=== PATIENT | female | born 1935 | race Caucasian/White ===

== ENCOUNTER → 2016-06-13 07:27 | Outpatient (CLI) | payer MEDICARE, OTHER ==
[2015-05-02 10:23] VITALS: BMI 28.2
[~2016-06-13 07:27] MED LIST: ASPIRIN EC81 M1 PO; COLACE100 MG PO; CORDARONE200 MG PO; COZAAR50 MG PO; FISH OIL 1,0001 CA1 PO; FISH OIL PO; FLAXSEED OIL1000 MG PO; HYDROCHLOROTHIA25 MG PO; K-DUR20 MEQ PO; LASIX40 MG PO; LOPRESSOR25 MG PO; SENOKOT-S TABLE1 TAB PO; ULTRAM50 MG PO; VITAMIN D3 PO; VITAMIN D5000 UNIT PO; XARELTO15 MG PO; [UNRECOGNIZED DRUG - REMARK] PO
== END | disposition home or self-care (01) ==
LOC: D.RT 07:27
DX: C34.90 Malignant neoplasm of unspecified part of unspecified bronchus or lung (principal)

== ENCOUNTER 2016-08-26 07:14 | Day surgery (SDC) | payer MEDICARE, OTHER ==
[~2016-08-26] VITALS: Ht 152.4 cm; Wt 59.1 kg
[2016-08-26 07:53] VITALS: BP 145/67; Ht 152.4 cm; Wt 59.1 kg
[2016-08-26 09:02] LABS: BASOPHILS 0.2 % (0-2); EOSINOPHILS 5.3 % (0-7); HEMOGLOBIN 11.8 g/dL (12-16); IMMATURE GRANULOCYTES 0.2 % (0-5); LYMPHOCYTES 22.2 % (15-50); MCH 29.2 pg (26.0-34.0); MCHC 32.8 g/dL (31.0-37.0); MCV 89.1 fL (80.0-100.0); MEAN PLATELET VOLUME 10.5 fL (7.4-10.4); MONOCYTES 7.3 % (2-11); NEUTROPHILS 64.8 % (40-80); PLATELET COUNT 177 10x3/uL (130-400); RBC 4.04 10x6/uL (4.00-5.40); RDW 12.9 % (11.5-14.5); WBC 5.9 10x3/uL (4.8-10.8)
[2016-08-26 09:07] LABS: ANION GAP 10.9 mmol/L (8-16); CALCIUM 9.1 mg/dL (8.5-10.1); CARBON DIOXIDE 27.7 mmol/L (21.0-32.0); POTASSIUM - SERUM 3.6 mmol/L (3.5-5.1)
--- NOTE | 2016-08-26 13:47 | NUR ---
1010 SERVED FULL LIQUID DIET. Floyd RUBI R.N. 1135 DRESSED, AWAKE & ALERT. GVIEN DISCHARGE INFORMATION INCLUDING: MED REC, SHEET LISTING NSAIDS TO AVIOD, REFLUX ESOPHAGITIS INFORMATION SHEETS, REFLUX ESOPHAGITIS/HIATEL HERNIA DIET SHEET & DISCHARGE INSTRUCTIONS SHEET POST ENDOSCOPIC PROCEDURES, & RTC APPT. PT VOICED UNDERSTANDING. TO CAFETERIA VIA WHEELCHAIR ACCOMPANIED BY . Floyd RUBI R.N.
--- NOTE | 2016-08-27 09:43 | HP ---
PATIENT: CLYDE CORTES MEDICAL RECORD: [id number] ACCOUNT: [id number] LOCATION:[place] : 37 ADMISSION DATE: 08/26/16 HISTORY AND PHYSICAL EXAMINATION CHIEF COMPLAINT: Reflux. HISTORY OF PRESENT ILLNESS: The patient has gastroesophageal reflux. She has a large hiatal hernia. The gastroesophageal reflux is intractable. The patient is to undergo an EGD in order to determine whether she can safely undergo a hiatal hernia repair. ALLERGIES: ATORVASTATIN. HOME MEDICATIONS: Xarelto, fish oil, Cozaar, aspirin, Colace, Senokot as well as flaxseed. PAST MEDICAL AND SURGICAL HISTORY: Possible asthma, coronary artery disease, history of CABG, history of aortic valve replacement, history of CVA, history of weakness from CVA, hiatal hernia, arthritis, , tonsillectomy and adenoidectomy, also removal of a lung nodule. PHYSICAL EXAMINATION: GENERAL: The patient does not appear acutely ill. She does not appear chronically ill. VITAL SIGNS: Reviewed. HEAD: External ears appear normal. EYES: Extraocular movements are intact. NECK: Trachea is midline. CHEST: No intercostal retractions. PULMONARY: Nonlabored. IMPRESSION: 1. Gastroesophageal reflux. 2. Hiatal hernia. PLAN: Will be EGD. TRANSINT:[id number] Voice Confirmation ID: [id number] DOCUMENT ID: [id number] NAVIN CARRASCO MD at 0943 CC: MIMI ROMERO MD, FERNANDEZ TILLMAN MD and DOLORES JONES MD [id number] DICTATION DATE: 08/26/16 09 MED SURG NURSE: 08/26/[address] [facility] 08/26/16 [address] [place] [address]
--- NOTE | 2016-08-27 09:43 | OP ---
PATIENT NAME: CLYDE CORTES MEDICAL RECORD: [id number] :37 LOCATION:D.OPS ADMISSION DATE: SURGEON: RUPERTO CARRASCO MD DATE OF OPERATION: 08/26/2016 PREOPERATIVE DIAGNOSES: 1. Gastroesophageal reflux, intractable. 2. Hiatal hernia. POSTOPERATIVE DIAGNOSES: 1. Gastroesophageal reflux, intractable. 2. Hiatal hernia. 3. Largely intrathoracic stomach (large hiatal hernia). PROCEDURE: Esophagogastroduodenoscopy with antral biopsies. SURGEON: Ruperto Carrasco MD. NOVELTY BALLOON ASSEMBLER AND PACKER: None. BLOOD LOSS: Minimal. ANESTHESIA: IV sedation. COMPLICATIONS: None. The reason for the anesthesia staff being present during the procedure includes the possible need for airway manipulation, which was necessary during the procedure. ENDOSCOPIC COURSE: The patient was conveyed to the endoscopy suite electively on 08/26/2016. IV sedation was induced by the anesthesia staff. A bite block was inserted. A gastroscope was inserted into the mouth. It was advanced easily into the hypopharynx. The esophagus was easily intubated as were the stomach and duodenum. Upon withdrawal, retroflexed and angulus views were obtained. Antral biopsies were obtained. The endoscope was then withdrawn under direct vision. I will see the patient in my office in 2-3 weeks. A hiatal hernia repair in her case is going to be very difficult. She will need to decide whether she wants to undergo such a large hiatal hernia repair. TRANSINT:[id number] Voice Confirmation ID: [id number] DOCUMENT ID: [id number] RUPERTO CARRASCO MD at 0943 CC: MIMI ROMERO MD [id number] DICTATION DATE: 08/26/16942 MILL TENDER: 08/26/16 1711 [facility] 08/26/16 [address] [place] [address]
== END 2016-08-26 11:35 | disposition home or self-care (01) ==
LOC: D.OPS 07:14
PROVIDERS: Anesthesiology
DX: K44.9 Diaphragmatic hernia without obstruction or gangrene (principal); K21.9 Gastro-esophageal reflux disease without esophagitis; J45.909 Unspecified asthma, uncomplicated; I25.10 Atherosclerotic heart disease of native coronary artery without angina pectoris; Z95.1 Presence of aortocoronary bypass graft; Z01.812 Encounter for preprocedural laboratory examination

== ENCOUNTER → 2016-11-26 11:17 | Outpatient (CLI) | payer MEDICARE, OTHER ==
[2016-08-26 07:53] VITALS: BMI 25.4
== END | disposition home or self-care (01) ==
LOC: D.RAD 11:15
DX: C34.32 Malignant neoplasm of lower lobe, left bronchus or lung (principal)

== ENCOUNTER 2018-10-02 18:46 | Emergency (ER) | payer MEDICARE, OTHER ==
[~2018-10-02] VITALS: Ht 152.4 cm; Wt 59.1 kg
[2018-10-02 18:51] VITALS: Ht 152.4 cm; Wt 59.1 kg
[2018-10-02] MEDS ORDERED: HYDROCODON-ACE1 EAC7 PO (21:58)
[2018-10-02 22:17] VITALS: BP 176/93
== END 2018-10-02 22:17 | disposition home or self-care (01) ==
LOC: D.ER 18:46
DX: S62.112A Displaced fracture of triquetrum [cuneiform] bone, left wrist, initial encounter for closed fracture (principal); X58.XXXA Exposure to other specified factors, initial encounter; Y93.89 Activity, other specified; Y92.89 Other specified places as the place of occurrence of the external cause

== ENCOUNTER 2018-11-11 16:47 | Inpatient (IN) | payer MEDICARE, OTHER ==
[~2018-11-11] VITALS: Ht 152.4 cm; Wt 96.4 kg
[~2018-11-11 16:47] MED LIST changes: +HYDROCODON-ACE1 EAC7 PO
[2018-11-11] MEDS ORDERED: LASIX40 MG PO (17:17)
[2018-11-11] MEDS ORDERED: K-DUR20 MEQ PO (17:19)
[2018-11-11 17:44] LABS: BASOPHILS 0.2 % (0-2); EOSINOPHILS 0.9 % (0-7); HEMOGLOBIN 14.4 g/dL (12-16); IMMATURE GRANULOCYTES 0.2 % (0-5); LYMPHOCYTES 15.1 % (15-50); MCHC 33.5 g/dL (31.0-37.0); MCV 86.7 fL (80.0-100.0); MEAN PLATELET VOLUME 10.2 fL (7.4-10.4); MONOCYTES 5.7 % (2-11); NEUTROPHILS 77.9 % (40-80); RBC 4.96 10x6/uL (4.00-5.40); RDW 13.2 % (11.5-14.5); WBC 9.6 10x3/uL (4.8-10.8)
[2018-11-11 17:46] LABS: PLATELET COUNT 269 10x3/uL (130-400)
[2018-11-11 18:09] LABS: ALBUMIN 2.7 g/dL (3.4-5.0); ALKALINE PHOSPHATASE 88 U/L (46-116); ALT (SGPT) 18 U/L (10-68); CALC OSMOLALITY 286 mosm/kg (275-300); CARBON DIOXIDE 28.5 mmol/L (21.0-32.0); CHLORIDE - SERUM 104 mmol/L (98-107); CREATININE - SERUM 0.9 mg/dL (0.6-1.3); POTASSIUM - SERUM 4.3 mmol/L (3.5-5.1); PROTEIN - SERUM 7.1 g/dL (6.4-8.2); SODIUM 138 mmol/L (136-145); UREA NITROGEN 35 mg/dL (7-18); eGFR NON AFRICAN AMERICAN 63 mL/min (90-120)
[2018-11-11 18:13] LABS: GLUCOSE 148 mg/dL (74-106)
[2018-11-11 18:23] LABS: CREATINE KINASE 32 UL (21-215); PRO BNP 185 pg/mL (0-450)
[2018-11-11 18:25] LABS: TROPONIN-I < 0.017 ng/mL (0.000-0.060)
[2018-11-11 18:31] VITALS: BP 105/54
[2018-11-11 19:30] VITALS: BP 132/48
--- NOTE | 2018-11-11 19:39 | NUR ---
URINE SENT TO LAB
[2018-11-11 19:51] LABS: APPEARANCE CLEAR (CLEAR); BILIRUBIN NEGATIVE (NEGATIVE); COLOR STRAW (YELLOW); GLUCOSE NEGATIVE (NEGATIVE); KETONE NEGATIVE (NEGATIVE); NITRITE NEGATIVE (NEGATIVE); PROTEIN NEGATIVE (NEGATIVE); SPECIFIC GRAVITY 1.005 (1.005-1.020); UROBILINOGEN NORMAL (NORMAL)
[2018-11-11 20:23] VITALS: BP 122/55
--- NOTE | 2018-11-11 20:41 | NUR ---
PT ASSISTED WITH USING BEDPAN.
--- NOTE | 2018-11-11 21:30 | NUR ---
PT GIVEN ICE WATER.
--- NOTE | 2018-11-11 21:45 | NUR ---
RECEIVED PT VIA STRETCHER. A&O X3. PRESENT AT BEDSIDE. RR EVEN AND UNLABORED AT THIS TIME. NO S/S OF DISTRESS NOTED. NO C/O PAIN OR DISCOMFORT. UP TO RR X1 ASSIST. GAIT SLOW AND STEADY. WILL CPOC.
[2018-11-11 22:55] VITALS: BP 133/67
--- NOTE | 2018-11-12 01:49 | NUR ---
PT WENT TO CT PER ORDER AND HAS RETURNED TO ROOM. SOB ON EXERTION. NO FURTHER NEEDS EXPRESSED AT THIS TIME.
[2018-11-12 04:00] VITALS: BP 128/60
[2018-11-12 06:26] LABS: BASOPHILS 0 % (0-2); EOSINOPHILS 0 % (0-7); HEMOGLOBIN 13.2 g/dL (12-16); IMMATURE GRANULOCYTES 0.4 % (0-5); LYMPHOCYTES 14.3 % (15-50); MCH 28.7 pg (26.0-34.0); MCHC 33.8 g/dL (31.0-37.0); MCV 84.8 fL (80.0-100.0); MEAN PLATELET VOLUME 10.1 fL (7.4-10.4); MONOCYTES 0.9 % (2-11); NEUTROPHILS 84.4 % (40-80); PLATELET COUNT 234 10x3/uL (130-400); RDW 13.2 % (11.5-14.5)
[2018-11-12 06:46] LABS: ALBUMIN 2.4 g/dL (3.4-5.0); ANION GAP 12.3 mmol/L (8-16); BILIRUBIN - TOTAL 0.19 mg/dL (0.2-1.3); CALCIUM 8.6 mg/dL (8.5-10.1); CARBON DIOXIDE 26.9 mmol/L (21.0-32.0); CREATININE - SERUM 0.9 mg/dL (0.6-1.3); MAGNESIUM - SERUM 2.1 mg/dL (1.8-2.4); PHOSPHOROUS 4.9 mg/dL (2.5-4.9); POTASSIUM - SERUM 4.2 mmol/L (3.5-5.1); PROTEIN - SERUM 6.6 g/dL (6.4-8.2); WBC 4.5 10x3/uL (4.8-10.8)
--- NOTE | 2018-11-12 07:10 | NUR ---
REPORT RECEIVED FROM VIOLIN RESTORER AND PATIENT CARE ASSUMED. PATIENT LAYING IN BED ON BACK WITH EYES CLOSED AND BREATHING EVENLY. WILL CONTINUE WITH PLAN OF CARE. SR UP X 2 BED IN LOW POSITIOJN AND CALL LIGHT IN REACH.
[2018-11-12 09:38] VITALS: BP 122/59
--- NOTE | 2018-11-12 10:11 | NUR ---
PATIENT IS STABLE AND VSS. AT BS. PATIENT DENIES ANY NEEDS OR PAIN. OFFERED BATH BUT PATIENT DECLINED. DID GIVE PATIENT ALL NEEDED HYGIENE ITEMS. TELEMETRY APPLIED. SR HR 80. WILL CONTINUE WITH PLAN OF CARE. SR UP X 2 BED IN LOW POSITION AND CALL LIGHT IN REACH.
[2018-11-12 11:57] VITALS: Ht 152.4 cm; Wt 96.4 kg
--- NOTE | 2018-11-12 14:52 | NUR ---
PATIENT RESTING COMFORTABLY IN BED WITH EYES CLOSED AND RESPIRATIONS NON LABORED AND EVEN. AT BS. WILL CONTINUE TO MONITOR. SR UP X 2 BED IN LOW POSITION AND CALL LIGHT IN REACH.
--- NOTE | 2018-11-12 19:20 | NUR ---
RECEIVED REPORT, WILL ASSUME CARE OF PT, DENIES ANY NEEDS AT THIS TIME, BED IS LOW, SRX2, CALL LIGHT IN REACH, WILL CONTINUE PLAN OF CARE
[2018-11-12 20:00] VITALS: BP 101/53
--- NOTE | 2018-11-12 20:02 | MORECARE ---
CASE MANAGEMENT DISCHARGE SUMMARY PATIENT: CLYDE CORTES UNIT: [id number] ADM DATE: 11/11/18 AGE: 83 : 36 SEX: F ROOM/BED: D.1209 AUTHOR: MEÑO MONTGOMERY PHYSICIAN: REFERRING PHYSICIAN: ELIF GARVIN MD DATE OF SERVICE: 11/12/18 Discharge Plan Patient Name: CLYDE CORTES [facility] [facility] 1935 Planned Disposition: Home Anticipated Discharge Date: Discharge Date: Expected LOS: Initial Reviewer: [email or web address] Initial Review Date: 11/12/2018 Generated: 11/12/18 9:02 pm Patient Name: CLYDE CORTES Page [phone] at 2001 All edits/amendments must be made on the electronic document DICTATION DATE: 11/12/182001 SUPERVISOR KENNEL: ANA 11/12/182001 RPT#: [id number] DC DATE: STATUS: ADM IN [facility] [address] [place] [address] END OF REPORT
--- NOTE | 2018-11-12 20:09 | MORECARE ---
CASE MANAGEMENT DISCHARGE SUMMARY PATIENT: CLYDE JOHNSON UNIT: [id number] ADM DATE: 11/11/18 AGE: 83 : 36 SEX: F ROOM/BED: D.1209 AUTHOR: ULISES,DOC PHYSICIAN: REFERRING PHYSICIAN: ELIF GARVIN MD DATE OF SERVICE: 11/12/18 Discharge Plan Patient Name: CLYDE JOHNSON [facility]: [facility]:[place] : 1935 Planned Disposition: Home Anticipated Discharge Date: Discharge Date: Expected LOS: Initial Reviewer: [email or web address] Initial Review Date: 11/12/2018 Generated: 11/12/18 9:08 pm Comments DCP- Discharge Planning Updated by [email or web address]: Migdalia Massey on 11/12/18 7:[address] Patient Name: CLYDE JOHNSON Admission Status: ER Accout number: [id number] Admission Date: 11-11-2018 : 1935 Admission Diagnosis:DYSPNEA, UNSPECIFIED Attending: ELIF CARR Current LOS: 1 Anticipated DC Date: Planned Disposition: Home Primary Insurance: MEDICARE A & B Discharge Planning Comments: CM met with patient at bedside after explaining CM role and obtaining verbal consent. Patient lives at home with her and plans to return there upon discharge. Patient feels this would be a safe discharge. CM discussed availability / needs of home health and medical equipment. Patient denies any discharge needs at this time. Patient states she will have her drive her home upon discharge. CM will continue to follow and assist as needed with discharge planning / needs. Technology Integration Specialist: Migdalia Massey DCPIA - Discharge Planning Initial Assessment Updated by [email or web address]: Migdalia Massey on 11/12/18 8:03 pm * Is the patient Alert and Oriented? Yes * How many steps to enter\exit or inside your home? * PCP [facility] * Pharmacy [facility] [place] * Preadmission Environment Home with Family * ADLs Independent * Equipment None * List name and contact numbers for known caregivers / representatives who currently or will assist patient after discharge: Wale Johnson - [facility] [place] - [phone] * Verbal permission to speak to the caregivers and representatives has been obtained from the patient. N/A * Community resources currently utilized None * Additional services required to return to the preadmission environment? No * Can the patient safely return to the preadmission environment? Yes * Has this patient been hospitalized within the prior 30 days at any hospital? No Last DP export: 11/12/18 7:02 p Patient Name: CLYDE JOHNSON Page [phone] at 2009 All edits/amendments must be made on the electronic document DICTATION DATE: 11/12/182007 VEGETABLE SCULLION: ANA 11/12/182007 RPT#: [id number] DC DATE: STATUS: ADM IN [facility] [address] [place] [address] END OF REPORT
--- NOTE | 2018-11-12 20:11 | NUR ---
COMPLAINS OF HEAD ACHE, GAVE TYLENOL ORDER
--- NOTE | 2018-11-12 21:14 | NUR ---
PT ASKING FOR SOMETHING TO HELP HER SLEEP, CALL DR. GARVIN, SAID SHE WOULD RATHER NOT AT THIS TIME,
[2018-11-12 23:46] VITALS: BP 127/74
--- NOTE | 2018-11-13 00:09 | NUR ---
ASSISTED PT TO RESTROOM AND BACK TO BED, SCD ARE ON, DAX ALARM IS ON, CALL LIGHT IN REACH, WILL CONTINUE PLAN OF CARE
--- NOTE | 2018-11-13 03:03 | NUR ---
I have reviewed this patient and I concur with the Shift Assessment completed by the Licensed Practical Nurse today this shift.
[2018-11-13 04:21] VITALS: BP 108/61
[2018-11-13 06:59] LABS: ALBUMIN 2.3 g/dL (3.4-5.0); ANION GAP 8.7 mmol/L (8-16); BILIRUBIN - TOTAL 0.25 mg/dL (0.2-1.3); CALCIUM 8.7 mg/dL (8.5-10.1); POTASSIUM - SERUM 3.7 mmol/L (3.5-5.1); PROTEIN - SERUM 6.2 g/dL (6.4-8.2)
[2018-11-13 07:00] VITALS: BP 112/78
[2018-11-13 07:06] LABS: PHOSPHOROUS 3.2 mg/dL (2.5-4.9)
--- NOTE | 2018-11-13 07:10 | NUR ---
REPORT RECEIVED FROM QUALITY CONTROL MICROBIOLOGY SUPERVISOR AND PATIENT CARE ASSUMED. PATIENT IS LAYING IN BED ON BACK. PATIENT IS PLEASANT, ALERT AND COME CONFUSION. PATIENT DENIES ANY NEEDS OR PAIN. BROUGHT PATIENT CUP OF COFFEE. VSS AND PATIENT IS STABLE. WILL CONTINUE WITH PLAN OF CARE. SR UP NX 2 BED IN LOW POSITION AND CALL LIGHT IN REACH.
--- NOTE | 2018-11-13 10:00 | NUR ---
PATIENT AMBULATING IN HALLWAY WITH SPOUSE AT SIDE. PATIENT TOLERATING WELL.
[2018-11-13 11:00] VITALS: BP 114/80
--- NOTE | 2018-11-13 13:36 | NUR ---
PATIENT SITTING UP IN BED LOOKING AT CELL PHONE. PATIENT HAVING INCREASED WHEEZING. CALLED RESPIRATORY FOR NEBULIZER TREATMENT. PATIENT DENIES ANY OTHER NEEDS OR PAIN. SR UP X 2 BED IN LOW POSTION AND CALL LIGHT IN REACH.
[2018-11-13 16:00] VITALS: BP 109/52
--- NOTE | 2018-11-13 17:00 | NUR ---
DR TILLEY IN ROOM. NEW ORDERS RECEIVED. PATIENT IS STABLE AND VSS. WILL CONTINUE TO MONITOR. SR UP X 2 BED IN LOW POSITION AND CALL LIGHT IN REACH.
--- NOTE | 2018-11-13 19:15 | NUR ---
PT IS ALERT AND ORIENTED X 3 WITH DISORIENTATION TO TIME. PT RESPONDS APPROPRIATELY TO MOST QUESTIONS BUT IS SLOW TO RESPOND AT TIMES. AT BEDSIDE. PT PRESENTS WITH EXPIRATORY WHEEZES BILATERALLY. HAS LEFT AC THAT IS PATENT AND INFUSING ABX AT THIS TIME. WEARING TELE MONITOR. SEE CHART. SCD'S ON. FALL PRECAUTIONS IN PLACE. CALL LIGHT IN REACH. PT PROVIDED RETURN DEMONSTRATION ON HOW TO USE THE CALL LIGHT EFFECTIVELY. DENIES FURTHER NEEDS AT THIS TIME. BED LOCKED AND LOWERED WITH TWO SIDE RAILS UP. CPOC.
[2018-11-13 20:00] VITALS: BP 106/54
--- NOTE | 2018-11-14 01:28 | NUR ---
I have reviewed this patient and I concur with the Shift Assessment completed by the Licensed Practical Nurse today this shift.
[2018-11-14 04:00] VITALS: BP 118/54
[2018-11-14 06:52] LABS: ALBUMIN 2.5 g/dL (3.4-5.0); ANION GAP 13.2 mmol/L (8-16); BILIRUBIN - TOTAL 0.19 mg/dL (0.2-1.3); CALCIUM 8.6 mg/dL (8.5-10.1); CARBON DIOXIDE 24.8 mmol/L (21.0-32.0); CREATININE - SERUM 1.1 mg/dL (0.6-1.3); MAGNESIUM - SERUM 1.9 mg/dL (1.8-2.4); PHOSPHOROUS 3.4 mg/dL (2.5-4.9); PROTEIN - SERUM 6.4 g/dL (6.4-8.2)
--- NOTE | 2018-11-14 07:10 | NUR ---
REPORT RECEIVED FROM TRIAL COURT JUSTICE AND PATIENT CARE ASSUMED. PATIENT AWAKE, ALERT AND DISORIENTED TO TIME. PATIENT APPEARS IN NO ACUTE DISTRESS. VSS. PATIENT DENIES ANY NEEDS OR PAIN. WILL CONTINUE WITH PLAN OF CARE. SR UP X 2 BED IN LOW POSITION AND CALL LIGHT IN REACH.
--- NOTE | 2018-11-14 13:00 | NUR ---
DR TILLEY IN ROOM. NEW ORDERS RECEIVED.
--- NOTE | 2018-11-14 15:13 | NUR ---
PATIENT RESTING COMFORTABLY WITH AT BS. VSS. WILL CONTINUE TO MONITOR. SR UP X 2 BED IN LOW POSITION AND CALL LIGHT IN REACH.
[2018-11-14 15:29] VITALS: BP 102/78
--- NOTE | 2018-11-14 17:40 | NUR ---
CALLED TO PATIENT ROOM. PATIENT SITTING UP IN BED ROCKING BACK AND FORTH AND RUBBING HER LEGS. PATIENT IS TEARFUL. PATIENT STATES THAT DR FIGUEREDO TOLD HER SHE COULD GO HOME TONIGHT AND THAT SINCE SHE IS NOT GETTING ANY PAIN MED OR NO ONE IS CHECKING ON HER THAT SHE NIGHT WELL GO HOME. I INFORMED PATIENT THAT I HAD NOT SEEN AN ORDER FROM DR FIGUEREDO FOR DC BUT I WOULD CHECK HIS NOT. I ALSO INFORMED THAT I WAS SORRY THAT SHE FELT THAT WAY AND THAT WHEN I CHECKED ON HER 2 HOURS EARLIER , AFTER SHE HAD AMBULATED IN THE HALLWAY, THAT SHE WAS LAYING IN BED AND TALKING ON THE PHONE. HER WAS AT AND I DID NOT KNOW SHE WAS IN PAIN BECAUSE SHE HAD NOT TOLD ME. IN OR JANE FOR ME TO KNOW SHE IS IN PAIN, SHE HAS TO INFORM ME. I PROMPTLY MEDICATED PER JUN WITH HYDROCODONE 10/325 MG PO. I HAD HER SIT UP IN BS CHAIR AND CHANGED IN [place]. I CHECKED DR FIGUEREDO NOTES AND INFORMED HER THAT HE DID NOT WROTE ANYTHING ABOUT DC TONIGHT. I ASKED IF THERE WAS ANYTHING MORE THAT I COULD DO FOR HER AT THIS TIME AND SHE STATED NO. CALL LIGHT IN PATIENTS LAP .
--- NOTE | 2018-11-14 18:00 | NUR ---
ENTERED PATIENT ROOM. PATIENT STATES THAT SHE FEELS MUCH BETTER AND APOLOGIZED FOR HER EARLIER BEHAVIOR. I EXPLAINED THAT I CERTAINLY UNDERSTAND THAT SHE WAS IN PAIN AND THAT HER HAD TO LEAVE FOR WORK. I EMPATHIZED AND WE VISITED FOR MORE THAN 20 MINUTES LOOKING AT HER CHILDREN PICTURES ON HER PHONE, ETC. SHE THANKED THIS NURSE FOR HER CARE AND UNDERSTANDING. PATIENT WISHES TO REMAIN IN BS CHAIR. CALL LIGHT IN PATIENT LAP. WILL CONTINUE TO MONITOR.
[2018-11-14 19:43] VITALS: BP 111/76
--- NOTE | 2018-11-14 19:47 | NUR ---
PATIENT RECEIVED SITTING UP IN BED. ASSESSMENT & VITAL SIGNS DONE. NO C/O PAIN OR DISTRESS. BED LOW. CALL LIGHT WITHIN REACH. WILL CONTINUE TO MONITOR.
[2018-11-14 23:56] VITALS: BP 104/50
--- NOTE | 2018-11-15 00:34 | NUR ---
PATIENT EYES CLOSED. RESPIRATIONS 18 & EVEN. AT BEDSIDE. SCDS ON. CALL LIGHT WITHIN REACH. WILL CONTINUE TO MONITOR.
[2018-11-15 04:20] VITALS: BP 110/60
[2018-11-15 07:30] LABS: ALBUMIN 2.6 g/dL (3.4-5.0); ANION GAP 12.7 mmol/L (8-16); BILIRUBIN - TOTAL 0.2 mg/dL (0.2-1.3); CARBON DIOXIDE 26.3 mmol/L (21.0-32.0); CREATININE - SERUM 0.9 mg/dL (0.6-1.3); MAGNESIUM - SERUM 2.2 mg/dL (1.8-2.4); PHOSPHOROUS 3.4 mg/dL (2.5-4.9); PROTEIN - SERUM 6.3 g/dL (6.4-8.2)
[2018-11-15 07:52] VITALS: BP 120/62
--- NOTE | 2018-11-15 08:22 | NUR ---
PT RESTING IN BED, SPOUSE AT BEDSIDE. SHIFT ASSESSMENT PERFORMED. DENIES ANY NEEDS AT THIS TIME. WILL CONT TO FOLLOW POC
[2018-11-15 11:49] VITALS: BP 109/55
--- NOTE | 2018-11-15 14:03 | NUR ---
PT STATES SHE DOES NOT WEAR O2 AT HOME. PT O2 SAT ON RA IS 95% NURSE PREFORMED WALK TEST WITH PT ON RA AND HER O2 SAT DROPPED TO 84% UPON EXERTION. NURSE APPLIED 2L NC AND WALKED WITH PT. PT KEPT O2 AT 94% UPON EXERTION WITH THE 2L NC.
--- NOTE | 2018-11-15 14:23 | NUR ---
Nutrition Follow-up: Pt reports no change in appetite and states she ate ~50% this AM. Refuses oral supplements. Diet: Low Sodium/No Added Salt PO intake: 46% over last 10 meals BM: 11/14 Labs noted: Alb 2.6, Glu 162 Meds noted: Solumedrol, KDur, Lasix Rec continue current diet as tolerated. [place] food preferences within diet order. RD following.
--- NOTE | 2018-11-15 15:18 | MORECARE ---
CASE MANAGEMENT DISCHARGE SUMMARY PATIENT: CLYDE JOHNSON UNIT: [id number] ADM DATE: 11/11/18 AGE: 83 : 36 SEX: F ROOM/BED: D.1209 AUTHOR: ULISES,DOC PHYSICIAN: REFERRING PHYSICIAN: ELIF GARVIN MD DATE OF SERVICE: 11/15/18 Discharge Plan Patient Name: CLYDE JOHNSON [facility]:[place] : 1935 Planned Disposition: Home Anticipated Discharge Date: Discharge Date: Expected LOS: Initial Reviewer: [email or web address] Initial Review Date: 11/12/2018 Generated: 11/15/18 4:18 pm Comments DCP- Discharge Planning Updated by [email or web address]: Migdalia Massey on 11/12/18 7:[address] Patient Name: CLYDE JOHNSON Admission Status: ER Accout number: [id number] Admission Date: 11-11-2018 : 1935 Admission Diagnosis:DYSPNEA, UNSPECIFIED Attending: ELIF CARR Current LOS: 1 Anticipated DC Date: Planned Disposition: Home Primary Insurance: MEDICARE A & B Discharge Planning Comments: CM met with patient at bedside after explaining CM role and obtaining verbal consent. Patient lives at home with her and plans to return there upon discharge. Patient feels this would be a safe discharge. CM discussed availability / needs of home health and medical equipment. Patient denies any discharge needs at this time. Patient states she will have her drive her home upon discharge. CM will continue to follow and assist as needed with discharge planning / needs. Documentation Designer: Migdalia Massey DCPIA - Discharge Planning Initial Assessment Updated by [id number]: Migdalia Massey on 11/12/18 8:03 pm * Is the patient Alert and Oriented? Yes * How many steps to enter\exit or inside your home? * PCP [facility] * Pharmacy [facility] [place] * Preadmission Environment Home with Family * ADLs Independent * Equipment None * List name and contact numbers for known caregivers / representatives who currently or will assist patient after discharge: Wale Johnson - [facility] [place] - [phone] * Verbal permission to speak to the caregivers and representatives has been obtained from the patient. N/A * Community resources currently utilized None * Additional services required to return to the preadmission environment? No * Can the patient safely return to the preadmission environment? Yes * Has this patient been hospitalized within the prior 30 days at any hospital? No External Providers External Provider: [facility] Next Contact Date: Service Request Date: Service Type: Resolution: Reviewer: Comments: Last DP export: 11/12/18 7:09 p Patient Name: CLYDE JOHNSON Page [phone] at 1518 All edits/amendments must be made on the electronic document DICTATION DATE: 11/15/181517 CHARGE WEIGHER: ANA 11/15/181517 RPT#: [id number] DC DATE: STATUS: ADM IN [facility] [address] [place] [address] END OF REPORT
--- NOTE | 2018-11-15 18:01 | NUR ---
GAVE VERBAL APPROVAL TO D/C PT. PIV REMOVED WITH CATHETER TIP INTACT. TELEMETRY REMOVED AND GIVEN TO SOUBRETTE,
[2018-11-15] MEDS ORDERED: FLORAJEN3 CAPS460 MG PO (18:22)
[2018-11-15] MEDS ORDERED: IPRAT-ALBUT 0.5-3 ML UPD (18:24)
[2018-11-15] MEDS ORDERED: LEVAQUIN750 MG PO (18:24)
[2018-11-15] MEDS ORDERED: PREDNISONE10 MG PO (18:25)
--- NOTE | 2018-11-15 19:15 | NUR ---
DISCHARGE INSTRUCTIONS REVIEWED WITH PT AND ALL QUESTIONS ANSWERED. ASSISTED PT TO FRONT OF HOSPITAL VIA WHEELCHAIR WHERE SHE LEFT WITH SPOUSE
--- NOTE | 2018-11-16 13:10 | MORECARE ---
CASE MANAGEMENT DISCHARGE SUMMARY PATIENT: CLYDE JOHNSON UNIT: [id number] ADM DATE: 11/11/18 AGE: 83 : 36 SEX: F ROOM/BED: D.1209 AUTHOR: ULISES,DOC PHYSICIAN: REFERRING PHYSICIAN: ELIF GARVIN MD DATE OF SERVICE: 11/16/18 Discharge Plan Patient Name: CLYDE JOHNSON Facility: [facility]:[place] : 1935 Planned Disposition: Home Anticipated Discharge Date: Discharge Date: 11/15/2018 Expected LOS: Initial Reviewer: [email or web address] Initial Review Date: 11/12/2018 Generated: 11/16/18 2:10 pm Comments DCP- Discharge Planning Updated by [email or web address]: Migdalia Massey on 11/16/18 12:[address] Late Entry 11/15/18 Patient Name: CLYDE JOHNSON Encounter No: [id number] : 1935 Primary Insurance: MEDICARE A & B Anticipated DC Date: Planned Disposition: Home External Planned Provider: : D/C IMM signed @[facility] FRANDY signed for DME -[employer] for home 02 / portable 02 and nebulizer with duo-neb updrafts DCP follow-up note: Patient and family in agreement with discharge plan. No changes to plan. Case management will follow and assist as needed. Migdalia Massey DCP- Discharge Planning Updated by [id number]: Migdalia Bryson on 11/12/18 7:[address] Patient Name: CLYDE JOHNSON Admission Status: ER Accout number: [id number] Admission Date: 11-11-2018 : 1935 Admission Diagnosis:DYSPNEA, UNSPECIFIED Attending: ELIF CARR Current LOS: 1 Anticipated DC Date: Planned Disposition: Home Primary Insurance: MEDICARE A & B Discharge Planning Comments: CM met with patient at bedside after explaining CM role and obtaining verbal consent. Patient lives at home with her and plans to return there upon discharge. Patient feels this would be a safe discharge. CM discussed availability / needs of home health and medical equipment. Patient denies any discharge needs at this time. Patient states she will have her drive her home upon discharge. CM will continue to follow and assist as needed with discharge planning / needs. Manager Php: Migdalia Massey DCPIA - Discharge Planning Initial Assessment Updated by [email or web address]: Migdalia Massey on 11/12/18 8:03 pm * Is the patient Alert and Oriented? Yes * How many steps to enter\exit or inside your home? * PCP [facility] * Pharmacy [facility] [place] * Preadmission Environment Home with Family * ADLs Independent * Equipment None * List name and contact numbers for known caregivers / representatives who currently or will assist patient after discharge: Wale Johnson - [facility] - [phone] * Verbal permission to speak to the caregivers and representatives has been obtained from the patient. N/A * Community resources currently utilized None * Additional services required to return to the preadmission environment? No * Can the patient safely return to the preadmission environment? Yes * Has this patient been hospitalized within the prior 30 days at any hospital? No Coverage Notice Reviewer: [email or web address] Reema Massey Notice Issued Date-Time: 11/15/2018 14:15 Notice Type: IM Discharge Notice Notice Delivered To: Patient Relationship to Patient: Self Burnisher And Bumper Name: Delivery Method: HAND - Hand Delivered Debra Days: Prior Verbal Notification: Recipient Understood Notice: Yes Recipient Signature: Yes Med Rec Note Co-signed by Attending: Coverage Notice Comment: Reviewer: [email or web address] Reema Massey Notice Issued Date-Time: 11/15/2018 14:15 Notice Type: Patient Choice Letter Notice Delivered To: Patient Relationship to Patient: Self Burnisher And Bumper Name: Delivery Method: HAND - Hand Delivered Debra Days: Prior Verbal Notification: Recipient Understood Notice: Yes Recipient Signature: Yes Med Rec Note Co-signed by Attending: Coverage Notice Comment: FRANDY FOR DME Last DP export: 11/15/18 2:18 p Patient Name: CLYDE JOHNSON Page [id number] at 1310 All edits/amendments must be made on the electronic document DICTATION DATE: 11/16/18 1310 BENEFITS SALES CONSULTANT: ANA 11/16/18 1310 RPT#: [id number] DC DATE:11/15/18 STATUS: DIS IN [facility] [address] [place] [address] END OF REPORT
--- NOTE | 2018-11-18 07:33 | MORECARE ---
CASE MANAGEMENT DISCHARGE SUMMARY PATIENT: CLYDE JOHNSON UNIT: [id number] ADM DATE: 11/11/18 AGE: 83 : 37 SEX: F ROOM/BED: D.1209 AUTHOR: ULISES,DOC PHYSICIAN: REFERRING PHYSICIAN: ELIF GARVIN MD DATE OF SERVICE: 11/18/18 Discharge Plan Patient Name: CLYDE JOHNSON Facility: [facility]:[place] : 1935 Planned Disposition: Home Anticipated Discharge Date: Discharge Date: 11/15/2018 Expected LOS: Initial Reviewer: [email or web address] Initial Review Date: 11/12/2018 Generated: 11/18/18 8:32 am Comments DCP- Discharge Planning Updated by [email or web address]: Migdalia Massey on 11/16/18 12:[address] Late Entry 11/15/18 Patient Name: CLYDE JOHNSON Encounter No: [id number] : 1935 Primary Insurance: MEDICARE A & B Anticipated DC Date: Planned Disposition: Home External Planned Provider: : D/C IMM signed @[facility] FRANDY signed for DME -[employer] for home 02 / portable 02 and nebulizer with duo-neb updrafts DCP follow-up note: Patient and family in agreement with discharge plan. No changes to plan. Case management will follow and assist as needed. Migdalia Massey DCP- Discharge Planning Updated by [email or web address]: Migdalia Massey on 11/12/18 7:[address] Patient Name: CLYDE JOHNSON Admission Status: ER Accout number: [id number] Admission Date: 11-11-2018 : 1935 Admission Diagnosis:DYSPNEA, UNSPECIFIED Attending: ELIF CARR Current LOS: 1 Anticipated DC Date: Planned Disposition: Home Primary Insurance: MEDICARE A & B Discharge Planning Comments: CM met with patient at bedside after explaining CM role and obtaining verbal consent. Patient lives at home with her and plans to return there upon discharge. Patient feels this would be a safe discharge. CM discussed availability / needs of home health and medical equipment. Patient denies any discharge needs at this time. Patient states she will have her drive her home upon discharge. CM will continue to follow and assist as needed with discharge planning / needs. Nutritional Chemist: Migdalia Massey DCPIA - Discharge Planning Initial Assessment Updated by [email or web address]: Migdalia Massey on 11/12/18 8:03 pm * Is the patient Alert and Oriented? Yes * How many steps to enter\exit or inside your home? * PCP [facility] * Pharmacy [facility] * Preadmission Environment Home with Family * ADLs Independent * Equipment None * List name and contact numbers for known caregivers / representatives who currently or will assist patient after discharge: Wale Johnson - [facility] - [phone] * Verbal permission to speak to the caregivers and representatives has been obtained from the patient. N/A * Community resources currently utilized None * Additional services required to return to the preadmission environment? No * Can the patient safely return to the preadmission environment? Yes * Has this patient been hospitalized within the prior 30 days at any hospital? No Coverage Notice Reviewer: [email or web address] Reema Massey Notice Issued Date-Time: 11/15/2018 14:15 Notice Type: IM Discharge Notice Notice Delivered To: Patient Relationship to Patient: Self Open Claims Representative Name: Delivery Method: HAND - Hand Delivered Debra Days: Prior Verbal Notification: Recipient Understood Notice: Yes Recipient Signature: Yes Med Rec Note Co-signed by Attending: Coverage Notice Comment: Reviewer: [email or web address] Reema Massey Notice Issued Date-Time: 11/15/2018 14:15 Notice Type: Patient Choice Letter Notice Delivered To: Patient Relationship to Patient: Self Open Claims Representative Name: Delivery Method: HAND - Hand Delivered Debra Days: Prior Verbal Notification: Recipient Understood Notice: Yes Recipient Signature: Yes Med Rec Note Co-signed by Attending: Coverage Notice Comment: FRANDY FOR DME Last DP export: 11/16/18 12:10 p Patient Name: CLYDE JOHNSON Page [id number] at 0733 All edits/amendments must be made on the electronic document DICTATION DATE: 11/18/18731 CAB DRIVER: ANA 11/18/18731 RPT#: [id number] DC DATE:11/15/18 STATUS: DIS [id number] [place] [address] END OF REPORT
== END 2018-11-15 19:00 | disposition home or self-care (01) | DRG 190 ==
LOC: D.ER 16:47 → D.M3 21:26
PROVIDERS: Family Medicine; ADMIT Family Medicine; ATTEND Family Medicine
DX: J44.1 Chronic obstructive pulmonary disease with (acute) exacerbation (principal); J18.1 Lobar pneumonia, unspecified organism; C34.90 Malignant neoplasm of unspecified part of unspecified bronchus or lung; N17.9 Acute kidney failure, unspecified; I50.30 Unspecified diastolic (congestive) heart failure; J98.11 Atelectasis; K21.9 Gastro-esophageal reflux disease without esophagitis; K44.9 Diaphragmatic hernia without obstruction or gangrene; R91.8 Other nonspecific abnormal finding of lung field; Z86.73 Personal history of transient ischemic attack (TIA), and cerebral infarction without residual deficits; I11.0 Hypertensive heart disease with heart failure; J44.0 Chronic obstructive pulmonary disease with (acute) lower respiratory infection

== ENCOUNTER 2020-01-17 01:44 | Emergency (ER) | payer MEDICARE, OTHER ==
[~2020-01-17] VITALS: Ht 152.4 cm; Wt 54.5 kg
[~2020-01-17 01:44] MED LIST changes: +FLORAJEN3 CAPS460 MG PO; +IPRAT-ALBUT 0.5-3 ML UPD; +LEVAQUIN750 MG PO; +PREDNISONE10 MG PO
[2020-01-17 01:50] VITALS: Ht 152.4 cm; Wt 54.5 kg
[2020-01-17 02:01] LABS: BASOPHILS 0.1 % (0-2); EOSINOPHILS 4.3 % (0-7); HEMOGLOBIN 13.8 g/dL (12-16); IMMATURE GRANULOCYTES 0.3 % (0-5); LYMPHOCYTES 29.9 % (15-50); MCH 29.2 pg (26.0-34.0); MCHC 32.9 g/dL (31.0-37.0); MCV 88.8 fL (80.0-100.0); MEAN PLATELET VOLUME 10.6 fL (7.4-10.4); MONOCYTES 7.2 % (2-11); NEUTROPHILS 58.2 % (40-80); PLATELET COUNT 215 10x3/uL (130-400); RBC 4.73 10x6/uL (4.00-5.40); RDW 13.4 % (11.5-14.5); WBC 7.8 10x3/uL (4.8-10.8)
[2020-01-17 02:08] LABS: CALC OSMOLALITY 286 mosm/kg (275-300); CALCIUM 9.4 mg/dL (8.5-10.1); CARBON DIOXIDE 23.3 mmol/L (21.0-32.0); CHLORIDE - SERUM 105 mmol/L (98-107); SODIUM 138 mmol/L (136-145); UREA NITROGEN 44 mg/dL (7-18); eGFR NON AFRICAN AMERICAN 56 mL/min (90-120)
[2020-01-17 02:09] LABS: GLUCOSE 105 mg/dL (74-106)
[2020-01-17 02:10] LABS: APTT 24.9 SECONDS (22.8-39.4); INR 0.94 (0.85-1.17); PROTIME 12.6 SECONDS (11.6-15.0)
[2020-01-17 02:25] LABS: ALBUMIN 3.9 g/dL (3.4-5.0); ALKALINE PHOSPHATASE 89 U/L (30-120); ALT (SGPT) 15 U/L (10-68); BILIRUBIN - TOTAL 0.38 mg/dL (0.2-1.3); CKMB 2.2 U/L (0.0-3.6); CREATINE KINASE 79 UL (21-215); MAGNESIUM - SERUM 1.8 mg/dL (1.8-2.4); PROTEIN - SERUM 7.4 g/dL (6.4-8.2)
[2020-01-17 02:26] LABS: TROPONIN-I < 0.017 ng/mL (0.000-0.060)
[2020-01-17] MEDS ORDERED: NITROSTAT0.3 MG SL (02:51)
[2020-01-17 03:12] VITALS: BP 179/76
== END 2020-01-17 03:12 | disposition home or self-care (01) ==
LOC: D.ER 01:44
PROVIDERS: Family Medicine
DX: R07.9 Chest pain, unspecified (principal); I25.10 Atherosclerotic heart disease of native coronary artery without angina pectoris; K44.9 Diaphragmatic hernia without obstruction or gangrene; Z86.73 Personal history of transient ischemic attack (TIA), and cerebral infarction without residual deficits; I50.9 Heart failure, unspecified; Z95.1 Presence of aortocoronary bypass graft

== ENCOUNTER 2020-06-26 10:34 | Day surgery (SDC) | payer MEDICARE, OTHER ==
[~2020-06-26] VITALS: Ht 152.4 cm; Wt 56.7 kg
[~2020-06-26 10:34] MED LIST changes: +ALEVE220 MG PO; +DONEPEZIL HCL10 MG PO; +ERGOCALCIF50000 UNIT PO; +MACROBID100 MG PO; +NITROSTAT0.3 MG SL; +PAROXETINE HCL10 MG PO; +RITALIN10 MG; +ZOCOR20 MG PO
[2020-06-26 11:10] LABS: BASOPHILS 0.2 % (0-2); EOSINOPHILS 3.4 % (0-7); HEMATOCRIT 38.6 % (36.0-48.0); HEMOGLOBIN 12.6 g/dL (12-16); IMMATURE GRANULOCYTES 0.6 % (0-5); LYMPHOCYTE ABS# 0.89 10x3/uL (1.18-3.74); LYMPHOCYTES 17.6 % (15-50); MCH 28.8 pg (26.0-34.0); MCHC 32.6 g/dL (31.0-37.0); MCV 88.3 fL (80.0-100.0); MONOCYTES 6.7 % (2-11); NEUTROPHIL ABS# 3.62 10x3/uL (1.56-6.13); NEUTROPHILS 71.5 % (40-80); PLATELET COUNT 169 10x3/uL (130-400); RBC 4.37 10x6/uL (4.00-5.40); RDW 13.3 % (11.5-14.5); WBC 5.1 10x3/uL (4.8-10.8)
[2020-06-26 11:14] LABS: ANION GAP 11.2 mmol/L (8-16); CALCIUM 9.4 mg/dL (8.5-10.1); CREATININE - SERUM 0.8 mg/dL (0.6-1.3); POTASSIUM - SERUM 4.2 mmol/L (3.5-5.1)
[2020-06-26 11:18] LABS: APTT 27.3 SECONDS (22.8-39.4); INR 1.09 (0.85-1.17); PROTIME 13.1 SECONDS (11.6-15.0)
[2020-06-26] MEDS ORDERED: HYDROCODON-ACE1 EAC7 PO (12:12)
[2020-06-26 12:22] VITALS: Ht 152.4 cm; Wt 56.7 kg
--- NOTE | 2020-06-27 08:19 | OP ---
PATIENT NAME: CLYDE JOHNSON MEDICAL RECORD: [id number] :[birth year] LOCATION:D.OPS ADMISSION DATE: SURGEON: JUANITA ESPINOZA DO DATE OF OPERATION: 06/26/2020 PROCEDURE PERFORMED: Left distal radius open reduction internal fixation. PREOPERATIVE DIAGNOSIS: Left distal radius fracture, extraarticular. POSTOPERATIVE DIAGNOSIS: Left distal radius fracture, extraarticular. INDICATIONS: Mr. Johnson is an 85-year-old female, who fell and fractured her left distal radius. She was seen in urgent care and sent to my office yesterday. I saw her and said it was severely displaced and had dorsal comminution. I told her we probably should fixate it or would continue to fall dorsally. She is okay with that. She is aware of the risks including infection, bleeding, malunion, nonunion, continued pain, damage to nerves or vessels in the area, need for further surgery, failure of hardware and cutout and she signed the consent. DESCRIPTION OF PROCEDURE: Juanita Espinoza DO The patient given block by anesthesia in the preoperative area and taken to the operative suite, laid in supine position. Given general anesthetic, was given a gram of Ancef and sedated and LMA was placed. The left upper extremity was then prepped and draped in sterile fashion. A timeout was performed. Everyone was in agreement with correct side, site, patient, and procedure. I then exsanguinated the left upper extremity with Esmarch and tourniquet was inflated to 250 mmHg, was up for 4 minutes. I then made an incision along the flexor carpi radialis tendon. I made careful dissection down to the distal radius and saw had a venous tourniquet, let the tourniquet down at that time. I then peeled the pronator quadratus off the fracture and reduced the fracture, put a K-wire in. Once in adequate position, I put a plate on and pinned it in a good position. We then put 4 distal locking screws in through the plate and then 2 locking screws and a shaft screw in the shaft. We got x-rays and saw that the screws were a little bit long on the distal portion and the lateral and removed them and shifted the radius slightly ulnar the distal part and then put 18 mm screws and took out the 20 and out the 18 in the distal portion and put in 18 in the styloid. I then put the locking screws back in the shaft and the sliding hole screw had to be removed as it did not grab anything. She was then irrigated and then I closed the skin with 3-0 Vicryl in an inverted interrupted fashion and placed Prineo glue on the skin. She had a skin tear on the dorsal surface of the skin of the wrist and the forearm, placed Adaptic on that as well covered with a 4 x 4 and cast padding and put a volar splint on and secured with an Luis E wrap. She was then awakened and taken to recovery in stable condition. BLOOD LOSS: Minimal. COMPLICATIONS: None. TRANSINT:[id number] Voice Confirmation ID: [id number] DOCUMENT ID: [id number] OPERATIVE REPORT [id number] CLYDE JOHNSON,JUANITA Cohn DO at 0819 CC: [id number] DICTATION DATE: 06/26/20 1433 CLAIM TRAINEE: 06/26/20 2215 [facility] 06/26/20 [id number] [place] [address]
== END 2020-06-26 16:22 | disposition home or self-care (01) ==
LOC: D.OPS 10:34
PROVIDERS: Anesthesiology; ATTEND Orthopaedic Surgery
DX: S52.502A Unspecified fracture of the lower end of left radius, initial encounter for closed fracture (principal); X58.XXXA Exposure to other specified factors, initial encounter; E78.5 Hyperlipidemia, unspecified; I10 Essential (primary) hypertension; J44.9 Chronic obstructive pulmonary disease, unspecified; I48.91 Unspecified atrial fibrillation; I25.119 Atherosclerotic heart disease of native coronary artery with unspecified angina pectoris

== ENCOUNTER → 2020-07-06 13:04 | Outpatient (CLI) | payer MEDICARE, OTHER | END | disposition home or self-care (01) | LOC: D.RT 13:00 | PROVIDERS: ATTEND Internal Medicine Pulmonary Disease | DX: J44.9 Chronic obstructive pulmonary disease, unspecified (principal); Z11.52 Encounter for screening for COVID-19 ==